=== PATIENT | male | born 1985 ===

== ENCOUNTER 2017-11-07 08:46 | Emergency (ER) | payer OTHER ==
[2017-11-07 08:48] VITALS: BMI 29.7
[2017-11-07 08:52] VITALS: RESP 18; TEMP 97.9
[2017-11-07] MEDS ORDERED: Sodium Chloride 0.9% 1,000 ML IV STA (09:17)
--- NOTE | 2017-11-07 09:21 | ED PDOC ---
Arrival/HPI - General Chief Complaint: Abdominal Pain Time Seen by Provider: 11/07/17 09:16 Historian: Patient - History of Present Illness Narrative History of Present Illness (Text): 11/07/17 09:18 32yr old male presents today with right upper abdominal pain and epigastric pain that started around 8am today, about 10 minutes after eating breakfast. pt states that the pain came on suddenly and he described it as a gas like pain, that has resolved at present time. pt denies fever/chills. denies cough. denies cp or sob. no vomiting/diarrhea. no dizziness or weakness. pt denies back pain or urinary symptoms. no other complaints. Past Medical History - Provider Review Nursing Documentation Reviewed: Yes - Travel History Have you recently traveled outside [place] w/in the past 3 mons?: No - Infectious Disease Hx of Infectious Diseases: None - Tetanus Immunization Tetanus Immunization: Unknown - Gastrointestinal Other/Comment: cholecystitis - Psychiatric Hx Substance Use: No Family/Social History - Physician Review Nursing Documentation Reviewed: Yes Family/Social History: Unknown Family HX Smoking Status: Current Some Days Smoker Hx Alcohol Use: No Hx Substance Use: No Allergies/Home Meds Allergies/Adverse Reactions: Allergies No Known Allergies Allergy (Verified 11/07/17 08:48) Review of Systems - Review of Systems Constitutional: absent: Fatigue, Fevers Respiratory: absent: SOB, Cough Cardiovascular: absent: Chest Pain, Palpitations Gastrointestinal: Abdominal Pain. absent: Constipation, Diarrhea, Nausea, Vomiting Genitourinary Male: absent: Dysuria, Frequency, Hematuria Musculoskeletal: absent: Arthralgias, Back Pain, Neck Pain Skin: absent: Rash, Pruritis Neurological: absent: Headache, Dizziness Psychiatric: absent: Anxiety, Depression, Suicidal Ideation Physical Exam Vital Signs Reviewed: Yes Vital Signs Temp Pulse Resp BP Pulse Ox 11/07/17 11:00 77 18 126/79 99 11/07/17 08:52 97.9 F 85 18 136/71 100 Temperature: Afebrile Blood Pressure: Normal Pulse: Regular Respiratory Rate: Normal Appearance: Positive for: Well-Appearing, Non-Toxic, Comfortable Pain Distress: None Mental Status: Positive for: Alert and Oriented X 3 - Systems Exam Head: Present: Atraumatic Mouth: Present: Moist Mucous Membranes Neck: Present: Normal Range of Motion Respiratory/Chest: Present: Clear to Auscultation, Good Air Exchange. No: Respiratory Distress, Accessory Muscle Use Cardiovascular: Present: Regular Rate and Rhythm, Normal S1, S2. No: Murmurs Abdomen: No: Tenderness, Distention, Peritoneal Signs, Rebound, Guarding Back: Present: Normal Inspection. No: CVA Tenderness, Midline Tenderness, Paraspinal Tenderness Upper Extremity: Present: Normal ROM Lower Extremity: Present: Normal ROM Neurological: Present: GCS=15, Speech Normal Skin: Present: Warm, Dry, Normal Color. No: Rashes Psychiatric: Present: Alert, Oriented x 3 Medical Decision Making ED Course and Treatment: 11/07/17 09:22 Patient is nontoxic well appearing with stable vital signs presenting with epigastric and ruq abdominal pain CBC wnl CMP wnl Amylase wnl Lipase wnl EKG; NSR at 80 b/m no st elevations, normal axis. Urinalysis wnl Ultrasound FINDINGS: LIVER: Measures 14.3 cm. Normal echogenicity of the liver parenchyma. No mass. No intrahepatic bile duct dilatation. GALLBLADDER: Gallbladder appears only a limited in overall distention but with numerous calculi within the lumen. No significant mural thickening or pericholecystic fluid collection evident. There is no reported sonographic Giordano's sign either. COMMON BILE DUCT: Measures 3.6 mm. No stones. No dilatation. PANCREAS: The tail of the pancreas is obscured by overlying bowel gas with remainder unremarkable. RIGHT KIDNEY: Measures 11.4cm. Normal echogenicity. No calculus, mass, or hydronephrosis. LEFT KIDNEY: Measures 12.5cm. Normal echogenicity. No calculus, mass, or hydronephrosis. SPLEEN: Normal in size and contour. The spleen measures 10.0 cm. No mass. AORTA: No aneurysmal dilatation. IVC: Unremarkable. OTHER FINDINGS: None. IMPRESSION: Cholelithiasis without sonographic pattern to suggest acute inflammatory changes. Normal caliber CBD. Partial imaging of the pancreas. The remainder of the examination appears unremarkable. Patient reassessment: pt remains non toxic well appearing; no distress. stable vitals. Discussed all results with patient in depth using video supervisor shuttle preparation; solutions operator Kurt Link [id number] pt was advised to f/u with PMD, GI and surgeon. pt was advised to return immediately if symptoms worsen,persist or if new symptoms develop. Patient verbalizes understanding of discharge instructions and need for immediate followup. all aspects of this case were discussed the attending of record. Impression: Abdominal pain, gallstones. Motrin every 6 hours as needed for pain Follow up with the GI specialist within the next 2 days. Follow up with the surgeon within the next 2 days. Follow up with primary care physician within the next 2 days Return immediately if symptoms worsen persist or if new symptoms develop: High fevers, increasing pain, vomiting, diarrhea or any other concerning symptoms develop 11/07/17 11:52 Reassessment Condition: Re-examined (pt without any pain or tenderness) - Lab Interpretations Lab Results: 11/07/17 09:40 11/07/17 09:40 Lab Results 11/07/17 09:40: WBC 10.1, RBC 4.93, Hgb 15.0, Hct 42.8, MCV 86.8, MCH 30.4, MCHC 35.0, RDW 13.2, Plt Count 180, MPV 12.3 H, Gran % 83.2 H, Lymph % (Auto) 11.3 L, Turner % (Auto) 4.5, Eos % (Auto) 0.8 L, Baso % (Auto) 0.2, Gran # 8.36 H , Lymph # (Auto) 1.1 L, Turner # (Auto) 0.5, Eos # (Auto) 0.1, Baso # (Auto) 0.02 11/07/17 09:40: Sodium 139, Potassium 3.9, Chloride 105, Carbon Dioxide 23, Anion Gap 14, BUN 14, Creatinine 0.8, Est GFR ( Amer) > 60, Est GFR (Non- Af Amer) > 60, Random Glucose 141 H, Calcium 9.5, Total Bilirubin 0.6, AST 89 H , ALT 104 H, Alkaline Phosphatase 106, Total Protein 7.8, Albumin 4.2, Globulin 3.6, Albumin/Globulin Ratio 1.2, Amylase 51, Lipase 52 11/07/17 09:20: Urine Color Yellow, Urine Appearance Clear, Urine pH 6.5, Ur Specific [place] 1.020, Urine Protein Negative, Urine Glucose (UA) Negative, Urine Ketones Negative, Urine Blood Negative, Urine Nitrate Negative, Urine Bilirubin Negative, Urine Urobilinogen 1.0 H, Ur Leukocyte Esterase Negative - RAD Interpretation Radiology Orders: 11/07/17 09:17 ABDOMEN COMPLETE [US] Stat - Medication Orders Current Medication Orders: Discontinued Medications Famotidine (Pepcid) 20 mg IVP STAT STA Stop: 11/07/17 09:18 Last Admin: 11/07/17 09:41 Dose: 20 mg IVP Administration Document 11/07/17 09:41 SF (Rec: 11/07/17 09:41 SF [facility] [id number] Charges for Administration # of IVP Administrations 1 Sodium Chloride (Sodium Chloride 0.9%) 1,000 mls @ 999 mls/hr IV .Q1H1M STA Stop: 11/07/17 10:17 Last Admin: 11/07/17 09:42 Dose: 999 mls/hr eMAR Start Stop Document 11/07/17 09:42 SF (Rec: 11/07/17 09:42 SF [facility] [id number] Intravenous Solution Start Date 11/07/17 Start Time 09:42 End Date 11/07/17 End time 10:42 Total Infusion Time 60 Disposition/Present on Arrival - Present on Arrival Any Indicators Present on Arrival: No History of DVT/PE: No History of Uncontrolled Diabetes: No Urinary Catheter: No History of Decub. Ulcer: No History Surgical Site Infection Following: None - Disposition Have Diagnosis and Disposition been Completed?: Yes Diagnosis: Gallstones, Abdominal pain Disposition: HOME/ ROUTINE Disposition Time: 11:54 Patient Plan: Discharge Patient Problems: Current Active Problems Problem Status Onset Abdominal pain Acute Gallstones Acute Condition: GOOD Discharge Instructions (ExitCare): Gallstones (DC), Acute Abdomen (Belly Pain) , Adult (DC) Additional Instructions: Motrin every 6 hours as needed for pain Follow up with the GI specialist within the next 2 days. Follow up with the surgeon within the next 2 days. Follow up with primary care physician within the next 2 days Return immediately if symptoms worsen persist or if new symptoms develop: High fevers, increasing pain, vomiting, diarrhea or any other concerning symptoms develop Referrals: Alfonso Claros MD [Staff Provider] - Follow up with primary Claudia Flores MD [Staff Provider] - Follow up with primary Dl Sanchez MD [Staff Provider] - Follow up with primary Crystal Navarro MD [Staff Provider] - Follow up with primary Forms: [facility] (Bulgarian), WORK NOTE
[2017-11-07 09:29] LABS: PH,URINE 6.5 (4.7-8.0); URINE BILIRUBIN NEGATIVE (NEGATIVE); URINE BLOOD NEGATIVE (NEGATIVE); URINE GLUCOSE (UA) NEGATIVE (NEGATIVE); URINE LEUKOCYTE ESTERASE NEGATIVE Leu/uL (NEGATIVE); URINE PROTEIN NEGATIVE mg/dL (<30 mg/dL)
[2017-11-07 09:30] LABS: URINE APPEARANCE CLEAR (CLEAR); URINE COLOR YELLOW (YELLOW)
[2017-11-07 09:52] LABS: BASO # 0.02 K/mm3 (0.0-2.0); BASO % 0.2 % (0.0-3.0); EOS # 0.1 (0.0-0.7); EOS % 0.8 % (1.5-5.0); GRAN # 8.36 (1.4-6.5); GRAN % 83.2 % (50.0-68.0); LYMPH # 1.1 (1.2-3.4); LYMPH % 11.3 % (22.0-35.0); MEAN CELL VOLUME 86.8 fl (80.0-105.0); MEAN CORPUSCULAR HEMOGLOBIN 30.4 pg (25.0-35.0); MEAN PLATELET VOLUME 12.3 fl (7.0-11.0); MONO # 0.5 (0.1-0.6); MONO % 4.5 % (1.0-6.0); RBC 4.93 10^6/uL (3.5-6.1); RED CELL DISTRIBUTION WIDTH 13.2 % (11.5-14.5); WHITE BLOOD COUNT 10.1 10^3/ul (4.5-11.0)
[2017-11-07 09:58] LABS: ALB/GLOB RATIO 1.2 (1.1-1.8); ALBUMIN 4.2 g/dL (3.0-4.8); ALT/SGPT 104 U/L (7-56); AMYLASE 51 U/L (35-125); AST/SGOT 89 U/L (17-59); BLOOD UREA NITROGEN 14 mg/dL (7-21); CALCIUM 9.5 mg/dL (8.4-10.5); GFR AFRICAN-AMERICAN > 60; GFR NON-AFRICAN AMERICAN > 60; LIPASE 52 U/L (23-300)
--- NOTE | 2017-11-07 10:19 | US ---
HISTORY: right upper and epigastric abdominal pain COMPARISON: None. TECHNIQUE: Sonographic evaluation of the abdomen. FINDINGS: LIVER: Measures 14.3 cm. Normal echogenicity of the liver parenchyma. No mass. No intrahepatic bile duct dilatation. GALLBLADDER: Gallbladder appears only a limited in overall distention but with numerous calculi within the lumen. No significant mural thickening or pericholecystic fluid collection evident. There is no reported sonographic Giordano's sign either. COMMON BILE DUCT: Measures 3.6 mm. No stones. No dilatation. PANCREAS: The tail of the pancreas is obscured by overlying bowel gas with remainder unremarkable. RIGHT KIDNEY: Measures 11.4cm. Normal echogenicity. No calculus, mass, or hydronephrosis. LEFT KIDNEY: Measures 12.5cm. Normal echogenicity. No calculus, mass, or hydronephrosis. SPLEEN: Normal in size and contour. The spleen measures 10.0 cm. No mass. AORTA: No aneurysmal dilatation. IVC: Unremarkable. OTHER FINDINGS: None. IMPRESSION: Cholelithiasis without sonographic pattern to suggest acute inflammatory changes. Normal caliber CBD. Partial imaging of the pancreas. The remainder of the examination appears unremarkable.
[2017-11-07 11:01] VITALS: BP 126/79; PULSE 77; O2SAT 99
--- NOTE | 2017-11-07 20:57 | CARD ---
APPROVED REPORT EKG Measurement Heart [id number] <Conclusion> Normal sinus rhythm Possible Left atrial enlargement Borderline ECG
== END 2017-11-07 11:05 | disposition home or self-care (01) ==
LOC: ED 08:46
DX: K80.20 Calculus of gallbladder without cholecystitis without obstruction (principal); F17.200 Nicotine dependence, unspecified, uncomplicated
CPT/HCPCS: 76700; 80053; 81003; 82150; 83690; 85025; 93005; 96361; 96374; 99285; J7040